=== PATIENT | male | born 1990 | race African-American/Black ===

== ENCOUNTER 2024-01-26 04:55 | Emergency (ER) | payer BC ==
[2024-01-26] MEDS: Ondansetron 4 MG/2 ML SDV IVPUSH ONE (05:05)
[2024-01-26] MEDS: Ondansetron 4 MG/2 ML SDV ONE (05:05)
[2024-01-26] MEDS ORDERED: Sodium Chloride 0.9% 10 ML Syringe FLUSH PRN (05:05)
[2024-01-26] MEDS: fentaNYL 50 MCG/ML SDV ONE (05:05)
[2024-01-26] MEDS: fentaNYL 50 MCG/ML SDV IVPUSH ONE ×2 (05:05→05:39)
[2024-01-26 05:09] LABS: BASOPHILS ABSOLUTE AUTO 0.04 K/uL (0.00-0.20); BASOPHILS PERCENT AUTO 0.4 % (0.0-1.0); EOSINOPHILS ABSOLUTE AUTO 0.13 K/uL (0.00-0.45); EOSINOPHILS PERCENT AUTO 1.3 % (0.0-6.0); HEMATOCRIT 41.4 % (42.0-52.0); HEMOGLOBIN 13.6 g/dL (14.0-18.0); IMMATURE GRAN ABSOLUTE AUTO 0.04 K/uL (0.00-0.05); IMMATURE GRAN PERCENT AUTO 0.4 % (0.0-0.4); LYMPHOCYTES ABSOLUTE AUTO 4.83 K/uL (1.00-4.80); LYMPHOCYTES PERCENT AUTO 48.2 % (24.0-44.0); MEAN CORPUSCULAR HEMOGLOBIN 27.5 pg (28.0-32.0); MEAN CORPUSCULAR HGB CONC 32.9 g/dL (32.0-36.0); MEAN CORPUSCULAR VOLUME 83.6 fL (83.0-99.0); MEAN PLATELET VOLUME 10.4 fL (9.4-12.4); MONOCYTES ABSOLUTE AUTO 0.45 K/uL (0.00-0.80); MONOCYTES PERCENT AUTO 4.5 % (0.0-8.0); NEUTROPHILS ABSOLUTE AUTO 4.53 K/uL (1.80-7.70); NEUTROPHILS PERCENT AUTO 45.2 % (41.0-71.0); PLATELET COUNT,PLT 213 K/uL (150-400); RED BLOOD CELL COUNT 4.95 M/uL (4.52-5.90); WHITE BLOOD CELL COUNT,WBC 10.02 K/uL (3.9-11.3)
[2024-01-26] MEDS: Lidocaine 1% with EPINEPHrine 1:100,000 10 ML MDV INJECT ONE (05:11)
[2024-01-26] MEDS: Diphtheria,Pertussis(Acell),Tetanus Vaccine 0.5 ML Syringe IM ONE (05:11)
[2024-01-26 05:32] LABS: A/G RATIO 1.2 (0.9-1.6); ALANINE AMINOTRANSFERASE,ALT 38 IU/L (14-63); ALBUMIN 3.6 g/dL (3.4-5.0); ALKALINE PHOSPHATASE 55 U/L (46-116); ASPARTATE AMNIOTRANSFERASE,AST 40 IU/L (15-37); BILIRUBIN TOTAL 0.5 mg/dL (0.2-1.0); BLOOD UREA NITROGEN,BUN 9 mg/dL (7.0-18.0); CALCIUM 8.3 mg/dL (8.5-10.1); CARBON DIOXIDE,CO2 24.4 mmol/L (21.0-32.0); CHLORIDE,CL 107 mmol/L (98-107); CREATININE 1.4 mg/dL (0.8-1.3); GLUCOSE RANDOM 130 mg/dL (74-106); LIPASE 64 U/L (16-77); POTASSIUM,K 3.2 mmol/L (3.5-5.1); PROTEIN TOTAL,TP 6.6 g/dL (6.4-8.2); SODIUM,NA 142 mmol/L (136-148)
[2024-01-26] MEDS: Iopamidol 755 MG/ML 500 ML Multipack Bottle IVPUSH ONE (05:34)
[2024-01-26] MEDS: Sodium Chloride 0.9% 1,000 ML IV STA (05:41)
[2024-01-26 05:47] LABS: ESTIMATED GFR 67 mL/min (>60)
[2024-01-26] MEDS: HYDROmorphone 0.5 MG/0.5 ML Syringe IVPUSH ONE (06:32)
== END 2024-01-26 06:50 | disposition critical access hospital (66) ==
LOC: MW.ED 04:55
DX: S21.132A Puncture wound without foreign body of left front wall of thorax without penetration into thoracic cavity, initial encounter (principal); S42.142A Displaced fracture of glenoid cavity of scapula, left shoulder, initial encounter for closed fracture; S45.002A Unspecified injury of axillary artery, left side, initial encounter; Z23 Encounter for immunization; S27.321A Contusion of lung, unilateral, initial encounter; S14.3XXA Injury of brachial plexus, initial encounter; I95.9 Hypotension, unspecified; W34.00XA Accidental discharge from unspecified firearms or gun, initial encounter
CPT/HCPCS: 36415; 36430; 71045; 71260; 72128; 73206; 74177; 80053; 83690; 85025; 86850; 86900; 86901; 86920; 90471; 90715; 96361; 96374; 96375; 96376; 99285; J1171; J2405; J3010; J7030; P9016; Q9967; 99291; J3490

== ENCOUNTER 2024-02-02 13:13 | Emergency (ER) | payer BC ==
[2024-02-02] MEDS: Acetaminophen/oxyCODONE 325-10 MG Tab PO ONE (14:00)
== END 2024-02-02 15:13 | disposition home or self-care (01) ==
LOC: MW.ED 13:13
DX: S21.132A Puncture wound without foreign body of left front wall of thorax without penetration into thoracic cavity, initial encounter (principal); Z79.891 Long term (current) use of opiate analgesic; Z79.82 Long term (current) use of aspirin; Z79.899 Other long term (current) drug therapy; Z75.8 Other problems related to medical facilities and other health care; W34.00XA Accidental discharge from unspecified firearms or gun, initial encounter
CPT/HCPCS: 99284; A9270

== ENCOUNTER 2024-02-06 18:18 | Emergency (ER) | payer BC ==
[2024-02-06] MEDS: oxyCODONE 5 MG Tab PO ONE (19:46)
[2024-02-06] MEDS: Gabapentin 300 MG Cap PO ONE (19:47)
== END 2024-02-06 20:31 | disposition home or self-care (01) ==
LOC: MW.ED 18:18
DX: G89.18 Other acute postprocedural pain (principal); Z87.828 Personal history of other (healed) physical injury and trauma; Z79.82 Long term (current) use of aspirin; Z79.899 Other long term (current) drug therapy; Z79.891 Long term (current) use of opiate analgesic
CPT/HCPCS: 99283; A9270; 99284